=== PATIENT | female | born 1955 ===

== ENCOUNTER 2017-03-15 10:22 | Emergency (ER) | payer OTHER ==
--- NOTE | 2017-03-15 11:29 | C.PDOC ---
History Of Present Illness 61 y/o female presents to ED for evaluation of right great toe injury. Pt states a suitcase dropped onto her foot causing avulsion and injury to nail bed. Pain 8/10. Denies weakness, numbness or any other complaints. Time Seen by Provider: 03/15/17 11:01 Chief Complaint (Nursing): Lower Extremity Problem/Injury History Per: Patient History/Exam Limitations: no limitations Onset/Duration Of Symptoms: Mins Current Symptoms Are (Timing): Still Present Severity: Moderate Pain Scale Rating Of: 8 Recent travel outside of the [place]: No Past Medical History Reviewed: Historical Data, Nursing Documentation, Vital Signs Vital Signs: Last Vital Signs Temp 98.2 F 03/15/17 10:28 Pulse 90 03/15/17 10:28 Resp 16 03/15/17 10:28 BP 111/76 03/15/17 10:28 Pulse Ox 96 03/15/17 12:18 Family History: States: Unknown Family Hx - Social History Hx Alcohol Use: No Hx Substance Use: No - Immunization History Hx Tetanus Toxoid Vaccination: No Hx Influenza Vaccination: No Hx Pneumococcal Vaccination: No Review Of Systems Except As Marked, All Systems Reviewed And Found Negative. Musculoskeletal: Positive for: Other (right great toe/nail bed injury) Neurological: Negative for: Weakness, Numbness Physical Exam - Physical Exam Appears: Non-toxic, No Acute Distress Skin: Warm, Dry Head: Atraumatic, Normacephalic Extremity: Normal ROM, Other (right great toe with thickened nail consistent with fungal infection, avulsed off nail bed, bloody) Neurological/Psych: Oriented x3, Normal Speech, Normal Motor, Normal Sensation ED Course And Treatment O2 Sat by Pulse Oximetry: 96 (room air) Pulse Ox Interpretation: Normal Medical Decision Making Medical Decision Making: Patient seen by Podiatry resident. Nail removed. Nail bed clean X Ray done. Disposition Counseled Patient/Family Regarding: Studies Performed, Diagnosis, Need For Followup - Disposition Referrals: [facility] at [facility] [Outside] Disposition Time: 12:16 Condition: STABLE Additional Instructions: Follow up in clinic on Wednesday in Podiatry clinic. Call this week for an appoint,ent. Llame pare hacer eva. Siga en la clinica de Podiatria el . Prescriptions: Cephalexin [Keflex] 500 mg PO TID #40 capsule Instructions: Toenail/Fingernail Removal (ED), Nail Avulsion (ED) Forms: Gen Discharge Inst Malay, Work Excuse - POA Present On Arrival: None - Clinical Impression Clinical Impression: Nail avulsion of toe - Scribe Statement The provider has reviewed the documentation as recorded by the Oneidaibe Kirby Gaffney Provider Attestation: All medical record entries made by the Oneidaibwai were at my direction and personally dictated by me. I have reviewed the chart and agree that the record accurately reflects my personal performance of the history, physical exam, medical decision making, and the department course for this patient. I have also personally directed, reviewed, and agree with the discharge instructions and disposition.
[2017-03-15] MEDS ORDERED: Lidocaine 1% Inj (20ml) INFIL ONE (11:47)
[2017-03-15] MEDS ORDERED: Lidocaine 1% Inj (20ml) ONE (11:48)
[2017-03-15] MEDS ORDERED: Bacitracin 500 Units/gm Oint Foilpak UD ONE (12:06)
--- NOTE | 2017-03-15 12:59 | CP.PCM.CON ---
History of Present Illness - History of Present Illness History of Present Illness: 61 y/o female with no significant pmhx seen at bedside in the ED for right foot great toenail injury. Patient states that she dropped a suitcase on her foot at 4am this morning. She denies any trauma to any other area. Patient states that she has moderate pain in her foot and noticed bleeding and part of the nail coming off. Patient denies any other pedal complaints at this time. Review of Systems - Constitutional Constitutional: As Per HPI Past Patient History - Past Social History Smoking Status: Never Smoked - PSYCHIATRIC Hx Substance Use: No - SURGICAL HISTORY Hx Surgeries: No - ANESTHESIA Hx Anesthesia: No Meds Home Medications: Home Medication List Medication Instructions Recorded Confirmed Type Cephalexin [Keflex] 500 mg PO TID #40 capsule 03/15/17 Rx Allergies/Adverse Reactions: Allergies Allergy/AdvReac Type Severity Reaction Status Date / Time No Known Allergies Allergy Verified 03/15/17 10:42 Physical Exam - Constitutional Appears: Well, Non-toxic, No Acute Distress - Extremities Exam Additional comments: vasc: palpable DP and PT pulses B/L, TG wnl, CFT < 3 sec to all digits neuro: grossly intact derm: partially avulsed right hallucal nail with dried blood surrounding nail bed, no active bleeding, no active drainage, no purulence, no echymoses, no edema, no erythema, no ascending cellulitis ortho: pain on palpation of hallucal nail R foot - Neurological Exam Neurological exam: Alert, Oriented x3 - Psychiatric Exam Psychiatric exam: Normal Affect, Normal Mood Results - Vital Signs Recent Vital Signs: Last Vital Signs Temp 97.7 F 03/15/17 12:46 Pulse 75 03/15/17 12:46 Resp 18 03/15/17 12:46 BP 110/71 03/15/17 12:46 Pulse Ox 97 03/15/17 12:46 Assessment & Plan - Assessment and Plan (Free Text) Assessment: 61 y/o female seen at bedside in the ED for right foot hallucal nail injury secondary to trauma Plan: patient evaluated and chart reviewed discussed in detail with attending Dr. Hurtado labs and vitals reviewed; afebrile x rays show no evidence of acute fracture or dislocation of right foot Injection of 8CC of 1%lidocaine plain was given in a local block fashion to right hallux right foot hallucal toenail removed using hemostat applied bacitracin, dressed with 4x4 gauze, gage no evidence of nail bed laceration noted patient instructed to keep dressing clean,dry,intact until follow up visit Rx keflex PO 5 days patient instructed to follow up in podiatry clinic at [facility] Wednesday, 06/29
[2017-03-15 13:10] VITALS: BP 110/71; PULSE 75; RESP 18; TEMP 97.7; O2SAT 97
--- NOTE | 2017-03-15 14:05 | RAD ---
PROCEDURE: Radiographs of the right great toe. TECHNIQUE:: AP radiograph of the right foot, with oblique and lateral view of the right great toe. COMPARISON: None. FINDINGS: BONES: No definite fracture identified. However, there is some linear lucency seen at the medial base of the 1st distal phalanx, extending longitudinally, which may represent a nondisplaced fracture. Followup is advised. 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 SOFT TISSUES: Soft tissue swelling about 1st distal phalanx. OTHER FINDINGS: None. IMPRESSION: Questionable nondisplaced fracture medial base of 1st distal phalanx. Follow-up advised. Osteoarthritis of DIP 2, 3 and 4.
== END 2017-03-15 12:47 | disposition home or self-care (01) ==
LOC: C.ER 10:22
DX: S91.201A Unspecified open wound of right great toe with damage to nail, initial encounter (principal); W20.8XXA Other cause of strike by thrown, projected or falling object, initial encounter